=== PATIENT | male | born 1985 | race African-American/Black ===

== ENCOUNTER 2024-01-23 10:28 | Emergency (ER) | payer OTHER, SELFPAY ==
[2024-01-23 10:35] VITALS: BP 151/105; PULSE 124; RESP 20; TEMP 37.2; O2SAT 97
--- NOTE | 2024-01-23 10:44 | ED.DENTAL ---
HPI - Dental/Oral General Chief complaint: Dental/Oral Stated complaint: Toothache History of Present Illness HPI Narrative: Patient presents with a toothache. Patient states he has been going on for several days any is taking Excedrin for his pain. Patient is crying in pain and states he went to [facility] yesterday but was turned away due to infection in the tooth. Related Data Allergies Allergy/AdvReac Type Severity Reaction Status Date / Time amoxicillin Allergy Mild rash Verified 03/01/18 20:26 iodine Allergy Mild rash Verified 03/01/18 20:26 Review of Systems Review of Systems: CONSTITUTIONAL: Denies fever, chills, or sweats. EYES: Denies visual changes, redness, or discharge. ENT: Denies rhinorrhea, congestion, sore throat, or otalgia.NO FEVER. NO JAW SWELLING. NO NECK SWELLING. NO LIMITATION WITH SPEAKING OR SWALLOWING. HAS A HISTORY OF DENTAL CARIES. HAS NOT SEEN A DENTIST RECENTLY. CARDIOVASCULAR: Denies chest pain, palpitations, or edema. RESPIRATORY: Denies cough or dyspnea. GASTROINTESTINAL: Denies abdominal pain, nausea, vomiting, or diarrhea. GENITOURINARY: Denies dysuria or hematuria. SKIN: Denies rash or itching. MUSCULOSKELETAL: Denies back pain, joint pain, or myalgia. NEUROLOGIC: Denies headache, numbness, or weakness. PSYCHIATRIC: Denies anxiety or depression. PMFSH Comments At time of signature, agree with nursing past medical, surgical, social and family history. There is no relevant family history pertinent to the presenting complaint Exam Narrative: GENERAL: Well-appearing, well-nourished, and in no acute distress. HEAD: Normocephalic, atraumatic. EYES: PERRLA and EOMI. ENT: Nares clear, no rhinorrhea or epistaxis. Mucous membranes moist. NO JOSÉ MIGUEL APICAL SWELLING, TOOTH TENDER TO PALPATION. NO FACIAL SWELLING. NO TRISMUS. ABLE TO OPEN MOUTH FULLY. NO NECK SWELLING OR HARRISON'S ANGINA. NO ABSCESS TO BE DRAINED. Tooth number 31 no drooling, trismus, facial asymmetry or significant neck swelling NECK: Supple. CHEST: Clear to auscultation. No respiratory distress. HEART: Regular rate and rhythm. No murmur heard. Normal peripheral pulses. ABDOMEN: Soft, nontender, nondistended, normal active bowel sounds. EXTREMITIES: Normal range of motion. No edema. SKIN: Warm, dry, no rash. NEURO: No focal deficits. Alert and oriented x3. Hannah Coma Scale Eye Opening: Spontaneous 4 Hannah Coma Scale Motor: Obeys Commands 6 Hannah Coma Scale Verbal: Oriented 5 Henry Coma Scale Total 15 Course Course Level of Care: Express Care Visit Vital Signs Vital signs: Vital Signs Temperature 37.2 C 01/23/24 10:35 Pulse Rate 124 H 01/23/24 10:35 Respiratory Rate 20 01/23/24 10:35 Blood Pressure 151/105 H 01/23/24 10:35 Pulse Oximetry 97 01/23/24 10:35 Oxygen Delivery Room Air 01/23/24 10:35 Temperature 37.2 C 01/23/24 10:35 Pulse Rate 124 H 01/23/24 10:35 Respiratory Rate 20 01/23/24 10:35 Blood Pressure 151/105 H 01/23/24 10:35 Pulse Oximetry 97 01/23/24 10:35 Oxygen Delivery Room Air 01/23/24 10:35 Please MARC schedule a followup visit with your personal physician for further evaluation and treatment. Including recheck and discussion of your blood pressure. If your symptoms persist, change or worsen significantly before you can contact your personal physician then please, without delay, go to the emergency department for further evaluation blood pressure recheck 150/90 Discharge Plan Discharge Clinical Impression: Toothache, Dental abscess, Dental caries Patient Disposition: Home, Self-Care Condition: Stable Instructions: Antibiotic Form, Toothache (ED) Additional Instructions: Dental discharge Avoid temperature extremes May apply heat or ice to the face Gentle brushing and flossing Antibiotic as directed Tylenol for lesser pain Use ibuprofen regularly as prescribed with food Follow-up with the dentist as soon as possible--see the list prov
[2024-01-23] MEDS: KETOROLAC (*BKC) 60 MG/2 ML VIAL IM (10:49)
== END 2024-01-23 11:16 | disposition home or self-care (01) ==
PROVIDERS: Emergency Provider Nurse Practitioner Family
DX: K04.7 Periapical abscess without sinus (principal); K02.9 Dental caries, unspecified
CPT/HCPCS: 96372; 99203; G0463; J1885